=== PATIENT | female | born 1995 | race Caucasian/White ===

== ENCOUNTER → 2025-05-04 08:02 | Outpatient (CLI) | payer OTHER, SELFPAY ==
--- NOTE | 2025-05-04 08:04 | DI.MG.S_ITS ---
US breast BI limited, MM diagnostic mammo BI: 05/04/2025 BI-RADS: 3 CLINICAL: 30-year old female for bilateral diagnostic mammogram and bilateral diagnostic breast ultrasound. Tyrer-Cuzick lifetime risk of 46.1%. Current reported family history of breast cancer: mother. The patient reports pain (3 months) in the right breast. The patient had prior bilateral breast biopsies with a history of fibroadenomas. PRIOR EXAMS: None. This is a baseline mammogram. MAMMOGRAPHY TECHNIQUE: 2D and 3D (tomosynthesis) digital mammographic views obtained, with additional images as needed for full coverage. Current study was also evaluated with a Computer Aided Detection (CAD) system. ULTRASOUND TECHNIQUE Real-time hilliard scale and color doppler imaging of the area of clinical interest was performed with image documentation. TARGETED Bilateral Breast Ultrasound: Real-time ultrasound exam was performed focused to area of clinical and/or imaging concern. DENSITY C. The breasts are heterogeneously dense, which may obscure small masses. MAMMOGRAPHY FINDINGS Right (finding-3): Upper Inner Quadrant, Middle depth: A skin marker was placed in the area of concern, and no mammographic abnormalities are identified or to account for concern by the patient of pain/tenderness. No suspicious mass, asymmetry, microcalcification, or other abnormality seen. Right (finding-2): Lower Inner Quadrant, Anterior depth: There is a circumscribed, oval, low-density mass present. Left (finding-1): Lower at 6:00, Anterior depth, measuring 0.8cm: There is a circumscribed, round, low-density mass present with associated calcifications. ULTRASOUND FINDINGS Right (finding-2): Lower Inner at 3:30, 4 cm from nipple, measuring 0.8 x 0.3 x 0.8 cm: Correlating with findings on mammogram there is an oval, hypoechoic cyst vs solid mass that is parallel. Doppler shows no vascularity. Right (finding-3): Upper Inner Quadrant: The area from 1 to 3 o'clock, 9 cm from the nipple was scanned. Underlying the surface marker, there is no sonographic abnormality to account for concern by the patient of pain/tenderness. Left (finding-1): Lower at 6:00, 1 cm from nipple, measuring 0.8 x 0.8 x 0.8 cm: Correlating with findings on mammogram there is a round, circumscribed, hypoechoic cyst vs solid mass that is parallel. Doppler shows no vascularity. IMPRESSION: Right (CvS): Lower Inner at 3:30, 4 cm from nipple, measuring 0.8 x 0.3 x 0.8 cm * Probably Benign. Left (CvS): Lower at 6:00, 1 cm from nipple, measuring 0.8 x 0.8 x 0.8 cm * Probably Benign. RECOMMENDATIONS Right: Lower Inner at 3:30, 4 cm from nipple * Six month followup with diagnostic ultrasound and diagnostic mammography. Right * Clinical follow-up is recommended, and further management of focal pain should be based on the results of clinical evaluation. If concerning symptom persists or progresses, further clinical evaluation should be considered. Left: Lower at 6:00, 1 cm from nipple * Six month followup with diagnostic ultrasound and diagnostic mammography. COMMENTS: Findings and recommendations were conveyed to the patient during today's evaluation. In addition, this patient has an elevated lifetime risk for breast cancer of over 20%. Recommend consideration for annual screening breast MRI as an adjunct to screening mammography. OVERALL ASSESSMENT CATEGORY BI-RADS-3: Probably Benign. ELECTRONICALLY SIGNED: Alisha Oconnor M.D. on 05/04/2025 at 01:08:33 PM PT Interpreting Station ID: [id number]
--- NOTE | 2025-05-04 08:04 | DI.US.S_ITS ---
PROCEDURE: US CAROTID DOPPLER BI INDICATIONS: dizziness TECHNIQUE: Color and pulse Doppler interrogation was performed of both carotid systems, with image documentation and velocity measurements. COMPARISON: None. FINDINGS: Stenosis calculations are based on SRU (Society of Radiologists in Ultrasound) criteria. Right side: Common carotid artery peak systolic velocity: 125 cm/sec. Internal carotid artery peak systolic velocity: 103 cm/sec. Internal carotid artery end diastolic velocity: 32 cm/sec. External carotid artery peak systolic velocity: 103 cm/sec. ICA/CCA peak systolic ratio: 0.82 . Jarvis scale imaging description: No significant atheromatous plaques. Percent internal carotid artery stenosis: Normal . Vertebral artery: Flow direction is antegrade. Left side: Common carotid artery peak systolic velocity: 128 cm/sec. Internal carotid artery peak systolic velocity: 112 cm/sec. Internal carotid artery end diastolic velocity: 30 cm/sec. External carotid artery peak systolic velocity: 124 cm/sec. ICA/CCA peak systolic ratio: 0.88 . Jarvis scale imaging description: No significant atherosclerotic plaques. Percent internal carotid artery stenosis: Normal . Vertebral artery: Flow direction is antegrade. IMPRESSION: 1. In the right carotid artery, there is less than 50% stenosis based on peak systolic velocity criteria. 2. In the left carotid artery, there is less than 50% stenosis based on peak systolic velocity criteria. 3. Antegrade vertebral arteries. Dictated by: Reyna Sequeira M.D. on 05/04/2025 at 20:08 Approved by: Reyna Sequeira M.D. on 05/04/2025 at 20:10
[2025-05-04 08:38] LABS: Add Manual Diff / Slide Review NO; Hematocrit 39.4 % (36-46); Hemoglobin 13.5 g/dL (12.0-16.0); Lymphocytes Absolute Auto 2400 /uL (1100-4500); Mean Corpuscular HGB Conc 34.2 % (30-36); Mean Corpuscular Hemoglobin 28.5 PG (26-34); Mean Corpuscular Volume 83.2 fL (80-100); Platelet Count 248 X10^3/uL (150-400)
[2025-05-04 08:51] LABS: Hemoglobin A1C% w Est Avg Glu 4.6 % (4.0-6.0)
[2025-05-04 08:54] LABS: Alanine Aminotransferase 23 IU/L (<35); Albumin 4.4 g/dL (3.5-5.0); Albumin Globulin Ratio 1.5 (1.0-2.8); Alkaline Phosphatase 68 U/L (38-126); Blood Urea Nitrogen 17 mg/dL (7-17); Calcium 9.6 mg/dL (8.4-10.2); Carbon Dioxide 25 mmol/L (22-32); Chloride 106 mmol/L (98-107); Cholesterol 205 mg/dL (140-199); Estimated Glomerular Filt Rate > 60 mL/min (>60); Globulin 2.9 g/dL (1.7-4.1); Glucose 94 mg/dL (70-99); HDL Cholesterol 47 mg/dL (40-60); HEMOLYSIS < 15 (0-50); Potassium 4.7 mmol/L (3.4-5.1); Sodium 140 mmol/L (137-145); Total Protein 7.3 g/dL (6.3-8.2); Triglycerides 129 mg/dL (35-150)
[2025-05-04 09:22] LABS: Thyroid Stimulating Hormone 1.74 uIU/mL (0.47-4.68)
== END ==
PROVIDERS: PCP Family Medicine; Referring Provider Family Medicine; Visit Provider Family Medicine
DX: R92.8 Other abnormal and inconclusive findings on diagnostic imaging of breast (principal); N64.4 Mastodynia; R42 Dizziness and giddiness; E66.9 Obesity, unspecified; F32.A Depression, unspecified; Z80.3 Family history of malignant neoplasm of breast; R92.333 Mammographic heterogeneous density, bilateral breasts
CPT/HCPCS: 36415; 76642; 77066; 80053; 80061; 83036; 84443; 85025; 93880; G0279

== ENCOUNTER → 2025-06-04 16:45 | Outpatient (CLI) | payer OTHER, SELFPAY ==
--- NOTE | 2025-06-04 16:47 | DI.MRI.S_ITS ---
MR breast BI wo/w con: 06/04/2025. BI-RADS: 4 CLINICAL: 30-year old female for high-risk screening MRI. Current reported family history of breast cancer: mother. PRIOR EXAMS: Mammogram(s): 05/04/2025. Breast Ultrasound(s): 05/04/2025. MRI TECHNIQUE: Bilateral breast MRI was performed on a 1.5 Ivory magnet using a dedicated breast coil with mild compression. Axial T1 and T2 STIR sequences were obtained. Dynamic contrast enhanced VIBRANT fat-suppressed sequences were obtained. Delayed sagittal high resolution or sagittal reconstructed isotropic sequence was also obtained. Subtraction images and maximum intensity projection images were obtained. The study was evaluated using Crack software. IV Contrast: 20 ml ProHance. FIBROGLANDULAR TISSUE Bilateral: C. Heterogeneous fibroglandular tissue. BACKGROUND PARENCHYMAL ENHANCEMENT Bilateral: Mild symmetrical background parenchymal enhancement. BREAST FINDINGS Right: at 11:00, 5 cm from nipple, (Axial S:7/I:71), measuring 1 x 1.1 x 0.8cm: There is homogeneous non-mass enhancement in focal distribution with kinetic enhancement curve showing medium initial phase, persistent pattern on delayed phase. No correlate is seen on prior mammogram from 05/04/2025. Right: Lower Inner at 3:30, 4 cm from nipple, measuring 1.4 x 1 x 0.7cm: Correlating with findings on mammogram and previous ultrasound findings there is an enhancing mass containing fat. This may represent fat necrosis. Right: at 8:00, 11 cm from nipple, measuring 1.5 x 0.8 x 0.7cm: There is a conglomerate of T2 hyperintense reniform masses with medium persistent kinetics that likely represent intramammary lymph nodes. This may correspond to an oval mass seen on mammogram 05/04/2025. Left: Lower at 6:00, 1 cm from nipple, measuring 1 x 0.9 x 0.9cm - previously measuring (05/04/2025) 0.8 x 0.8 x 0.8cm: Correlating with findings on mammogram and previous ultrasound findings there is a round, circumscribed enhancing mass with dark internal septations. Kinetic enhancement curve shows slow initial phase and persistent pattern on delayed phase. On non-contrast sequences this mass shows intermediate signal intensity on STIR/T2-weighted sequences. This could represent a fibroadenoma. IMPRESSION: Right (Non-Mass): at 11:00, 5 cm from nipple, (Axial S:7/I:71), measuring 1 x 1.1 x 0.8cm * Suspicious findings with likelihood of malignancy. Right (Mass): Lower Inner at 3:30, 4 cm from nipple, measuring 1.4 x 1 x 0.7cm * Probably Benign. Left (Mass): Lower at 6:00, 1 cm from nipple, measuring 1 x 0.9 x 0.9cm - previously measuring (05/04/2025) 0.8 x 0.8 x 0.8cm * Probably Benign. RECOMMENDATIONS Right: Lower Inner at 3:30, 4 cm from nipple * Continue with short interval mammographic and sonographic follow up per the report from 05/04/2025. Right: at 11:00, 5 cm from nipple * Further evaluation with diagnostic ultrasound. * Second-look ultrasound followed by ultrasound guided biopsy. If there is no ultrasound correlate, MRI-guided biopsy is recommended. Left: Lower at 6:00, 1 cm from nipple * Continue with short interval mammographic and sonographic follow up per the report from 05/04/2025. COMMENTS: The imaging literature indicates that a negative contrast breast MRI examination has a high sensitivity and a moderate specificity for detecting and excluding invasive carcinomas to a detection threshold of 3-5 mm; nonetheless, appropriate clinical and mammographic follow-up are recommended. MRI is not sensitive for detecting DCIS (ductal carcinoma in situ) and may not detect large invasive neoplasms that show only minimal enhancement such as mucinous carcinoma. If there are suspicious calcifications or clinically worrisome palpable masses, then biopsy should still be considered. Invasive neoplasms can be hidden by co-existent and benign enhancement caused by mastitis, hormone therapy effects, radiation therapy, , and recent biopsy or surgery. False positive examinations can occur in a number of circumstances, including breasts that have recently been subject to invasive procedures and those that contain atypical ductal hyperplasia, hormonally stimulated glandular tissue, fat necrosis, or radial scars. OVERALL ASSESSMENT CATEGORY BI-RADS-4: Suspicious. ELECTRONICALLY SIGNED: Alisha Oconnor M.D. on 06/11/2025 at 06:25:46 PM PT Interpreting Station ID: [id number]
== END ==
LOC: MRI 16:46
PROVIDERS: PCP Family Medicine; Referring Provider Family Medicine; Visit Provider Family Medicine
DX: R92.8 Other abnormal and inconclusive findings on diagnostic imaging of breast (principal); R92.333 Mammographic heterogeneous density, bilateral breasts; N63.11 Unspecified lump in the right breast, upper outer quadrant; N63.14 Unspecified lump in the right breast, lower inner quadrant; N63.25 Unspecified lump in the left breast, overlapping quadrants; Z80.3 Family history of malignant neoplasm of breast
CPT/HCPCS: 77049; A9579